=== PATIENT | female | born 1985 | race Caucasian/White ===

== ENCOUNTER 2017-04-20 20:29 | Emergency (ER) | payer OTHER ==
[2017-04-20] MEDS ORDERED: Prochlorperazine 10 MG/2 ML VIAL ONE (20:50)
[2017-04-20] MEDS ORDERED: HYDROcodone/Acetaminophen 5/325 mg Tablet ONE (20:50)
[2017-04-20] MEDS ORDERED: diphenhydrAMINE 25 MG CAP ONE (20:50)
== END 2017-04-20 20:57 | disposition home or self-care (01) ==
LOC: BURERS 20:29
DX: G43.909 Migraine, unspecified, not intractable, without status migrainosus (principal); F31.9 Bipolar disorder, unspecified; F17.210 Nicotine dependence, cigarettes, uncomplicated; Z79.899 Other long term (current) drug therapy
CPT/HCPCS: 99283; J0780

== ENCOUNTER 2017-05-09 22:12 | Emergency (ER) | payer OTHER ==
[2017-05-09] MEDS ORDERED: Morphine 4 MG/ML Carpuject ONE (22:46)
[2017-05-09] MEDS ORDERED: Ondansetron HCl/PF 4 MG/2 ML Vial ONE (22:46)
[2017-05-09 23:08] LABS: #Basophils 0.1 thou/uL (0.0-0.2); #Eosinphils 0.2 thou/uL (0.0-0.7); #Lymphocytes 3.8 thou/uL (1.20-3.40); #Monocytes 0.6 thou/uL (0.11-0.59); #Neutrophils 4.9 thou/uL (1.40-6.50); %Basophils 0.8 % (0.0-1.0); %Eosinophils 1.7 % (0.0-10.0); %Lymphocytes 39.9 % (21.0-51.0); %Neutrophils 51.5 % (42.0-75.0); Hemoglobin 14.1 g/dL (12.0-16.0); Mean Corpuscular HGB CONC 35.6 g/dL (32.0-36.0); Mean Corpuscular Hemoglobin 33.7 pg (27.0-31.0); Mean Corpuscular Volume 94.7 fl (81.0-99.0); Mean Platelet Volume 6.2 fL (7.4-10.4); Platelet Count 368 thou/uL (130-400); RBC Distribution Width 12.1 % (11.5-14.5); Red Blood Cell (RBC) Count 4.18 mill/uL (4.20-5.40); White Blood Cell (WBC) Count 9.4 thou/uL (4.8-10.8)
[2017-05-09 23:09] LABS: Bilirubin Negative (Negative); Blood, Urine Trace (Negative); Clarity Slightly Cloudy (Clear); Glucose, Urine (Dipstick) Negative (Negative); Leukocyte Negative (Negative); Nitrite Negative (Negative); Protein, Urine (Dipstick) Negative (Neg-Trace); Specific Gravity, Urine 1.025 (1.005-1.030); Urobilinogen 0.2 mg/dL (0.2-1.0); pH, Urine 5.5 (5.0-9.0)
[2017-05-09 23:16] LABS: Bacteria/HPF 1+ HPF (None Seen); RBC/HPF 0-3 HPF (0-3); Squamous Epithelial 0-3 HPF (0-3)
[2017-05-09 23:25] LABS: ALT (SGPT) 35 U/L (8-55); AST (SGOT) 16 U/L (5-34); Alkaline Phosphatase 87 U/L (40-150); Anion Gap 13 mmol/L (10-20); BUN (Urea Nitrogen) 11 mg/dL (7.0-18.7); Bilirubin, Total 0.3 mg/dL (0.2-1.2); Calc. Creatinine Clearance 0 mL/min (70-130); Calcium 8.7 mg/dL (7.8-10.44); Carbon Dioxide 20 mmol/L (22-29); Chloride 111 mmol/L (98-107); Estimated GFR-MDRD 85; Globulin 2.9 g/dL (2.4-3.5); Glucose 93 mg/dL (70-105); Lipase 33 U/L (8-78); Potassium 3.5 mmol/L (3.5-5.1); Protein, Total 6.9 g/dL (6.0-8.3); Sodium 140 mmol/L (136-145)
[2017-05-09 23:26] LABS: CKMB 0.7 ng/mL (0-6.6); Troponin I Less than 0.010 ng/mL (< 0.028)
[2017-05-10] MEDS ORDERED: Nitrofurantoin Monohyd/M-Cryst 100 MG CAP PO SCH (00:01)
[2017-05-10] MEDS ORDERED: Prochlorperazine 10 MG/2 ML VIAL ONE (00:04)
[2017-05-10] MEDS ORDERED: Pantoprazole 40 MG VIAL ONE (00:04)
--- NOTE | 2017-05-10 07:29 | CT ---
PRELIMINARY REPORT/[facility]/EMERGENCY AFTER HOURS PROCEDURE: EXAM: CT Abdomen and Pelvis Without Intravenous Contrast CLINICAL HISTORY: 31 years old, female; Pain; Abdominal pain; Generalized; Prior surgery; Surgery date: 6+ months; Surg alma delia type: Cholecystectomy; Patient HX: Pt presents to the er for abdominal pain; N/v x 2 days mid and r flank pain TECHNIQUE: Axial computed tomography images of the abdomen and pelvis without intravenous contrast. All CT scans at this facility use one or more dose reduction techniques, viz.: automated exposure control; ma/kV adjustment per patient size (including targeted exams where dose is matched to indication; i.e. head) ; or iterative reconstruction technique. Coronal reformatted images were created and reviewed. COMPARISON: No relevant prior studies available. FINDINGS: The lung bases are clear. One or 2 small intrarenal calculi bilaterally. No hydronephrosis of either kidney. No visible ureteral calculus. No perinephric fluid. Prior cholecystectomy, no significant biliary tree dilation. Unremarkable appearance of the liver, spleen, adrenal glands, and pancreas. No free air, ascites, or bowel distention. No retroperitoneal adenopathy. CT pelvis: The appendix is visualized and appears normal. There are no CT findings to strongly suggest diverticulitis. No abnormal mass or fluid collection in the pelvis. IMPRESSION: Bilateral intrarenal calculi. No hydronephrosis of either kidney. No visible ureteral calculus. Normal appendix. No free air or bowel distention. Prior cholecystectomy, no significant biliary tree dilation. Other findings discussed above. Thank you for allowing us to participate in the care of your patient. Dictated and Authenticated by: Souleymane Barnard MD 05/09/2017 11:46 PM Central Time ([place] & [place]) FINAL REPORT CT ABDOMEN AND PELVIS WITHOUT CONTRAST: Date: 05/09/[address] of the abdomen and pelvis was done for evaluation of right flank pain, nausea, and vomiting . Axial slices were acquired, then coronal reconstructions were done. FINDINGS: The lung bases are clear. The liver, spleen, pancreas, adrenal glands, and abdominal aorta appear nor mal within the limitations of a noncontrast study. Tiny calculi are seen in the kidneys which are nonobstructing. There is no sign of hydronephrosis. Ne ither ureter is dilated. There is a very tiny calcification near the right UVJ on scan 59 of the mike nal images and scan 74 of axial images. I cannot tell if this is actually in the distal ureter or imm ediately adjacent to it. There certainly is not dilation of ureter. The bowel gas pattern is unremarkable. There is no sign of inflammation around bowel. There is no sig n of appendicitis or diverticulitis. No free air or free fluid seen. CT of the pelvis shows no pelvic masses, fluid collections, or inflammatory changes. IMPRESSION: 1. Bilateral nonobstructing renal calculi. 2. Solitary, 2.0 mm calcification deep in the pelvis on the right side. It is near the point of the right UVJ, but I cannot confirm if it is in it or not. There is certainly no ureteral dilation to sug gest it, though it must be noted that the patient does have right flank pain. There is a chance that this could be a tiny distal ureteral calculus that is nonobstructing, but I am not certain from these images. Report in agreement with preliminary reading by Ivana. POS: HOME
== END 2017-05-10 00:28 | disposition home or self-care (01) ==
LOC: BURERS 22:12
DX: K21.9 Gastro-esophageal reflux disease without esophagitis (principal); K58.9 Irritable bowel syndrome, unspecified; G43.909 Migraine, unspecified, not intractable, without status migrainosus; F31.9 Bipolar disorder, unspecified; F17.210 Nicotine dependence, cigarettes, uncomplicated; Z79.899 Other long term (current) drug therapy
CPT/HCPCS: 74176; 80053; 81003; 81015; 82553; 83690; 84484; 85025; 93005; 96374; 96375; C9113; J0780; J2270; J2405

== ENCOUNTER 2017-07-26 15:02 | Emergency (ER) | payer OTHER ==
[2017-07-26] MEDS ORDERED: diphenhydrAMINE 50 MG/ML VIAL ONE (15:32)
[2017-07-26] MEDS ORDERED: Ondansetron HCl/PF 4 MG/2 ML Vial ONE (15:32)
[2017-07-26] MEDS ORDERED: Metoclopramide HCl 10 MG/2 ML VIAL ONE (15:32)
[2017-07-26] MEDS ORDERED: Magnesium Sulfate 2 GM/100 ML BAG ONE (15:33)
== END 2017-07-26 16:22 | disposition home or self-care (01) ==
LOC: BURERS 15:02
DX: G43.909 Migraine, unspecified, not intractable, without status migrainosus (principal); F17.210 Nicotine dependence, cigarettes, uncomplicated; F31.9 Bipolar disorder, unspecified
CPT/HCPCS: 96365; 96375; J1200; J2405; J2765; J3475

== ENCOUNTER 2017-10-02 19:43 | Emergency (ER) | payer OTHER ==
[2017-10-02] MEDS ORDERED: HYDROcodone/Acetaminophen 5/325 mg Tablet ONE (20:06)
[2017-10-02] MEDS ORDERED: Ondansetron ODT 4 MG TAB ONE (20:06)
[2017-10-02 20:22] LABS: Clarity Clear (Clear); Specific Gravity, Urine 1.025 (1.005-1.030)
[2017-10-02 20:23] LABS: Bilirubin Negative (Negative); Blood, Urine Negative (Negative); Glucose, Urine (Dipstick) Negative (Negative); Leukocyte Negative (Negative); Nitrite Negative (Negative); Protein, Urine (Dipstick) Negative (Neg-Trace); pH, Urine 6.5 (5.0-9.0)
[2017-10-02 20:27] LABS: #Eosinphils 0.2 thou/uL (0.0-0.7); #Lymphocytes 3.1 thou/uL (1.20-3.40); #Monocytes 0.5 thou/uL (0.11-0.59); %Basophils 0.7 % (0.0-1.0); %Eosinophils 2.3 % (0.0-10.0); %Monocytes 7.7 % (0.0-10.0); %Neutrophils 44.4 % (42.0-75.0); Hemoglobin 13.1 g/dL (12.0-16.0); Mean Corpuscular HGB CONC 37.6 g/dL (32.0-36.0); Mean Corpuscular Hemoglobin 32.6 pg (27.0-31.0); Mean Corpuscular Volume 86.7 fL (78.0-98.0); Platelet Count 297 thou/uL (130-400); RBC Distribution Width 11.3 % (11.5-14.5); Red Blood Cell (RBC) Count 4.01 mill/uL (4.20-5.40); White Blood Cell (WBC) Count 6.8 thou/uL (4.8-10.8)
[2017-10-02 20:28] LABS: MDiff Complete? YES; Manual Diff?? YES
[2017-10-02 20:32] LABS: Anion Gap 13 mmol/L (10-20); BUN (Urea Nitrogen) 15 mg/dL (7.0-18.7); Calc. Creatinine Clearance 0 mL/min (70-130); Calcium 8.6 mg/dL (7.8-10.44); Carbon Dioxide 21 mmol/L (22-29); Chloride 112 mmol/L (98-107); Estimated GFR-MDRD 77; Glucose 98 mg/dL (70-105); Potassium 3.1 mmol/L (3.5-5.1); Sodium 143 mmol/L (136-145)
[2017-10-02 20:37] LABS: BHCG - Serum Negative (NEGATIVE); Pregs Control Background? CLEAR/WHITE (CLR/WHITE); Pregs Control Bar Appear? YES (CONTROL BAR)
== END 2017-10-02 20:54 | disposition home or self-care (01) ==
LOC: BURERS 19:43
DX: L03.313 Cellulitis of chest wall (principal); E87.6 Hypokalemia; G43.909 Migraine, unspecified, not intractable, without status migrainosus; F31.9 Bipolar disorder, unspecified; F17.210 Nicotine dependence, cigarettes, uncomplicated; Z79.899 Other long term (current) drug therapy
CPT/HCPCS: 80048; 81003; 84703; 85025; 99284; Q0162

== ENCOUNTER 2017-10-21 16:04 | Emergency (ER) | payer OTHER ==
--- NOTE | 2017-10-21 20:20 | RAD ---
LEFT SHOULDER THREE VIEWS: 10/21/2017 FINDINGS: No fracture, dislocation, or AC joint widening is seen. All joints appear normal. The visible adjac ent ribs appear intact. IMPRESSION: No acute finding. POS: HOME
== END 2017-10-21 16:43 | disposition home or self-care (01) ==
LOC: BURERS 16:04
DX: S43.402A Unspecified sprain of left shoulder joint, initial encounter (principal); G43.909 Migraine, unspecified, not intractable, without status migrainosus; F31.9 Bipolar disorder, unspecified; F17.210 Nicotine dependence, cigarettes, uncomplicated; Z79.899 Other long term (current) drug therapy; W22.8XXA Striking against or struck by other objects, initial encounter

== ENCOUNTER 2017-11-08 08:33 | Emergency (ER) | payer OTHER ==
[2017-11-08 09:19] LABS: Clarity Clear (Clear)
[2017-11-08 09:20] LABS: Bilirubin Negative (Negative); Blood, Urine Negative (Negative); Glucose, Urine (Dipstick) Negative (Negative); Leukocyte Negative (Negative); Nitrite Negative (Negative); Pregnancy Test - Urine (BHCG) POSITIVE (Negative); Pregu Control Background? CLEAR/WHITE (CLR/WHITE); Pregu Control Bar Appear? YES (CONTROL BAR); Protein, Urine (Dipstick) Negative (Neg-Trace); Specific Gravity 1.015 (1.002-1.036); Specific Gravity, Urine 1.015 (1.005-1.030)
[2017-11-08] MEDS ORDERED: Ondansetron HCl/PF 4 MG/2 ML Vial ONE (09:26)
[2017-11-08] MEDS ORDERED: Pantoprazole 40 MG VIAL ONE (09:26)
[2017-11-08 09:47] LABS: ALT (SGPT) 11 U/L (8-55); AST (SGOT) 11 U/L (5-34); Albumin 3.8 g/dL (3.5-5.0); Alkaline Phosphatase 79 U/L (40-150); Anion Gap 11 mmol/L (10-20); BUN (Urea Nitrogen) 10 mg/dL (7.0-18.7); Bilirubin, Total 0.2 mg/dL (0.2-1.2); Calc. Creatinine Clearance 0 mL/min (70-130); Calcium 8.9 mg/dL (7.8-10.44); Carbon Dioxide 21 mmol/L (22-29); Chloride 112 mmol/L (98-107); Estimated GFR-MDRD 84; Globulin 2.6 g/dL (2.4-3.5); Glucose 94 mg/dL (70-105); Lipase 13 U/L (8-78); Potassium 3.6 mmol/L (3.5-5.1); Protein, Total 6.4 g/dL (6.0-8.3); Sodium 140 mmol/L (136-145)
[2017-11-08 09:52] LABS: #Eosinphils 0.1 thou/uL (0.0-0.7); #Lymphocytes 2.4 thou/uL (1.20-3.40); #Monocytes 0.4 thou/uL (0.11-0.59); #Neutrophils 3.7 thou/uL (1.40-6.50); %Basophils 0.6 % (0.0-1.0); %Eosinophils 1.7 % (0.0-10.0); %Lymphocytes 36.2 % (21.0-51.0); %Monocytes 5.5 % (0.0-10.0); Mean Corpuscular HGB CONC 37.4 g/dL (32.0-36.0); Mean Corpuscular Hemoglobin 31.3 pg (27.0-31.0); Mean Corpuscular Volume 83.8 fL (78.0-98.0); Mean Platelet Volume 5.5 fL (7.4-10.4); Platelet Count 275 thou/uL (130-400); RBC Distribution Width 10.8 % (11.5-14.5); Red Blood Cell (RBC) Count 4.14 mill/uL (4.20-5.40); White Blood Cell (WBC) Count 6.5 thou/uL (4.8-10.8)
[2017-11-10 19:01] LABS: Chlamydia by PCR Not Detected (NotDetected); GC by PCR Not Detected (NotDetected)
== END 2017-11-08 10:44 | disposition home or self-care (01) ==
LOC: BURERS 08:33
DX: O99.89 Other specified diseases and conditions complicating pregnancy, childbirth and the puerperium (principal); R10.9 Unspecified abdominal pain; O99.341 Other mental disorders complicating pregnancy, first trimester; F31.9 Bipolar disorder, unspecified; O99.351 Diseases of the nervous system complicating pregnancy, first trimester; G43.909 Migraine, unspecified, not intractable, without status migrainosus; O99.331 Smoking (tobacco) complicating pregnancy, first trimester; Z79.899 Other long term (current) drug therapy
CPT/HCPCS: 80053; 81003; 81025; 83690; 84702; 85025; 87086; 87480; 87491; 87510; 87591; 87660; 96374; 96375; C9113; J2405

== ENCOUNTER 2017-11-28 16:30 | Emergency (ER) | payer OTHER | END 2017-11-28 16:52 | disposition home or self-care (01) | LOC: BURERS 16:30 | DX: M75.92 Shoulder lesion, unspecified, left shoulder (principal); F31.9 Bipolar disorder, unspecified; F17.210 Nicotine dependence, cigarettes, uncomplicated; Z79.899 Other long term (current) drug therapy; X50.0XXA Overexertion from strenuous movement or load, initial encounter | CPT/HCPCS: 99283 ==

== ENCOUNTER 2017-12-02 13:58 | Emergency (ER) | payer OTHER ==
[2017-12-02] MEDS ORDERED: Bacitracin Zinc 1 Packet ONE (15:08)
--- NOTE | 2017-12-02 22:17 | RAD ---
RIGHT ANKLE THREE VIEWS: 12/02/2017 FINDINGS: No fracture or joint abnormality is seen. All bones appear intact. IMPRESSION: No acute bony findings. POS: HOME
== END 2017-12-02 15:12 | disposition home or self-care (01) ==
LOC: BURERS 13:58
DX: O9A.211 Injury, poisoning and certain other consequences of external causes complicating pregnancy, first trimester (principal); S93.401A Sprain of unspecified ligament of right ankle, initial encounter; O99.341 Other mental disorders complicating pregnancy, first trimester; F31.9 Bipolar disorder, unspecified; O99.331 Smoking (tobacco) complicating pregnancy, first trimester; F17.210 Nicotine dependence, cigarettes, uncomplicated; Z79.899 Other long term (current) drug therapy; Z3A.08 8 weeks gestation of pregnancy